=== PATIENT | female | born 1955 | race Two or more races ===

== ENCOUNTER 2017-03-27 13:07 | Emergency (ER) | payer MEDICAID ==
[~2017-03-27] VITALS: Ht 154.9 cm; Wt 58.5 kg
[2017-03-27 13:07] VITALS: BP 121/78
[~2017-03-27 13:07] MED LIST: HYDROmorphone 1mg/ml Carpuject IVP ONE
--- NOTE | 2017-03-27 13:14 | Emergency Room Report ---
History of Present Illness General Chief Complaint: Multiple Trauma/Fall Source: Family Member, EMS, Caregiver (ERIC ADKINS) Present Illness HPI The patient is a 61 yo F presenting for pain after ground level fall this morning. PMHx of renal failure on dialysis M, W, F, liver transplant 2005, hepatic encephalopathy. Pain is a 10/10 sharp sensation to R hip and does not radiate. Worse with movement. The patient is not provide information at this time.The caregiver states that the patient is at baseline mentation. She is unsure if the patient hit her head. The patient is on Coumadin. (ERIC ADKINS P.A.) Allergies: Coded Allergies: ACETAMINOPHEN (Verified Allergy, Unknown, 03/27/17) IBUPROFEN (Verified Allergy, Unknown, 03/27/17) PENICILLINS (Verified Allergy, Unknown, 03/27/17) Patient History Past Medical History: see triage record, DM, renal disease, dialysis, other - liver transplant Last Menstrual Period: N/A Reviewed Nursing Documentation: PMH: Agreed, PSxH: Agreed (ERIC ADKINS P.A.) Nursing Documentation-PMH Past Medical History: No History, Except For Hx Cardiac Problems: No - RENAL FAILURE, LIVER TRANSPLANT RECEIPIENT 2005, BACK ON LIST NOW Hx Hypertension: No - HEPATIC ENCEPHALOPATHY, ASCITIS Hx Dialysis: Yes - M-W-F (ERIC ADKINS P.A.) Review of Systems All Other Systems: limited (ERIC ADKINS P.A.) Physical Exam Vital Signs Date Time Temp Pulse Resp B/P (MAP) Pulse Ox O2 Delivery O2 Flow Rate FiO2 03/27/17 12:53 104 20 109/68 98 Room Air (ERIC ADKINS P.A.) Sp02 EP Interpretation: reviewed, normal General Appearance: mild distress, lethargic Head: normocephalic Eyes: bilateral eye normal inspection, bilateral eye PERRL ENT: normal ENT inspection Neck: full range of motion Respiratory: chest non-tender, lungs clear, normal breath sounds, speaking full sentences Cardiovascular #1: regular rate, rhythm, no edema Gastrointestinal: normal bowel sounds, non tender, soft, non-distended, no guarding, no rebound Rectal: deferred Genitourinary: no CVA tenderness Musculoskeletal: other - shortening L hip Neurologic: other - lethargic Psychiatric: other - cnofused Skin: normal inspection Lymphatic: normal inspection (RITESH CONDON M.D.) Procedures Critical Care Time Critical Care Time i. I feel this is a highly complex case requiring extensive working including EKG/Rhythm strip, Xray/CT/US, Blood/urine lab work, repeat exams while in ED, and administration of strong opiates/narcotics for pain control, admission to hospital or close patient follow up. Total time: 30 min bedside evaluation and treatment excludes procedures (EKG). Reason for critical care: Altered mental status, hip fracture, subarachnoid Possible complications: hypotension, hypertension, [place], shock, arrhythmias, metabolic acidosis, end organ damage, respiratory failure. Interventions: labs, CT head, CT Lspine, CT Pelvis, intubation, CXR. IV Keppra. Vitamin K. consultation with neurosurgery Course: Patient presented with ground level fall, hitting head with left hip shortening. CT brain shows subarachnoid hemorrhage. CT pelvis shows bilateral hip fracture. ammonia significant elevated. BUN/creatinine elevated. Patient intubated. Given Keppra. Given vitamin K. Discussed course with trauma team at [facility] and accept the patient Consultations: nursing staff, EMS, family Performed by: Dr Condon Tolerated well condition = critical j. because of unstable vital signs this patient had a condition that could potentially threaten life or limb. I feel this is a critical patient who required my full attention while patient was considered critical. Total Critical Care Time excluding procedures was greater than 35 minutes (RITSEH CONDON M.D.) Medical Decision Making PA Attestation Dr. Condon is my supervising physician. Patient management was discussed with my supervising physician (ERIC ADKINS) Diagnostic Impression: Primary Impression: Subarachnoid hemorrhage Additional Impressions: Hepatic encephalopathy Liver failure Qualified Codes: K72.01 - Acute and subacute hepatic failure with coma ESRD (end stage renal disease) on dialysis Intertrochanteric fracture of right hip Qualified Codes: S72.144A - Nondisplaced intertrochanteric fracture of right femur, initial encounter for closed fracture Fracture of greater trochanter of left femur Qualified Codes: S72.115A - Nondisplaced fracture of greater trochanter of left femur, initial encounter for closed fracture ER Course Hospital Course 61-year-old female presents ED with right hip shortening status post fall. Head injury. on couamdin. h/o liver transplant. h/o ESRD Differential diagnosis includes- hip fx, brain bleed, coagulopathy Clinical course Patient placed on stretcher. Initial history and physical I ordered labs, pain meds, CT Labs show significant LFT elevation, ammonia level elevated, INR 3.0 CT brain shows subarachnoid hemorrhage CT Pelvis shows R intertrochanteric fx, L greater trochanter fx Given loading dose of Keppra. Given lactulose. Given vitamin K Given multiple comorbidities patient will be intubated. While majority of care is at [facility] there is no bed availability. Patient will be transferred at [facility] for higher level of care. Case endorsed to neurosurgeon i. I feel this is a highly complex case requiring extensive working including EKG/Rhythm strip, Xray/CT/US, Blood/urine lab work, repeat exams while in ED, and administration of strong opiates/narcotics for pain control, admission to hospital or close patient follow up. Diagnosis -subarachnoid hemorrhage, hepatic encephaloapthy, liver failure, ESRD on diaylsis, intertrochanteric fx. frature of greater trochanter transferred in critical condition transferred in critical condition Labs Test 03/27/17 12:35 03/27/17 13:15 White Blood Count 4.0 K/UL (4.8-10.8) Red Blood Count 3.01 M/UL (4.20-5.40) Hemoglobin 9.7 G/DL (12.0-16.0) Hematocrit 29.9 % (37.0-47.0) Mean Corpuscular Volume 99 FL (80-99) Mean Corpuscular Hemoglobin 32.2 PG (27.0-31.0) Mean Corpuscular Hemoglobin Concent 32.4 G/DL (32.0-36.0) Red Cell Distribution Width 16.2 % (11.6-14.8) Platelet Count 42 K/UL (150-450) Mean Platelet Volume 10.3 FL (6.5-10.1) Neutrophils (%) (Auto) % (45.0-75.0) Lymphocytes (%) (Auto) % (20.0-45.0) Monocytes (%) (Auto) % (1.0-10.0) Eosinophils (%) (Auto) % (0.0-3.0) Basophils (%) (Auto) % (0.0-2.0) Differential Total Cells Counted 100 Neutrophils % (Manual) 76 % (45-75) Lymphocytes % (Manual) 15 % (20-45) Monocytes % (Manual) 7 % (1-10) Eosinophils % (Manual) 1 % (0-3) Basophils % (Manual) 0 % (0-2) Band Neutrophils 1 % (0-8) Platelet Estimate Decreased Platelet Morphology Normal Hypochromasia 1+ Anisocytosis 1+ Spherocytes 1+ Prothrombin Time 32.3 SEC (9.30-11.50) Prothromb Time International Ratio 3.0 (0.9-1.1) Activated Partial Thromboplast Time 40 SEC (23-33) Sodium Level 141 MMOL/L (136-145) Potassium Level 3.9 MMOL/L (3.5-5.1) Chloride Level 106 MMOL/L (98-107) Carbon Dioxide Level 24 MMOL/L (21-32) Anion Gap 11 mmol/L (5-15) Blood Urea Nitrogen 22 mg/dL (7-18) Creatinine 3.5 MG/DL (0.55-1.30) Estimat Glomerular Filtration Rate 13.4 mL/min (>60) Glucose Level 142 MG/DL (74-106) Calcium Level 8.2 MG/DL (8.5-10.1) Total Bilirubin 2.0 MG/DL (0.2-1.0) Direct Bilirubin 0.9 MG/DL (0.0-0.3) Aspartate Amino Transf (AST/SGOT) 66 U/L (15-37) Alanine Aminotransferase (ALT/SGPT) 44 U/L (12-78) Alkaline Phosphatase 283 U/L (46-116) Total Protein 7.3 G/DL (6.4-8.2) Albumin 2.5 G/DL (3.4-5.0) Globulin 4.8 g/dL Albumin/Globulin Ratio 0.5 (1.0-2.7) Ammonia 143 umol/L (11-32) (RITESH CONDON M.D.) Chest X-Ray Diagnostic Results Chest X-Ray Diagnostic Results : Chest X-Ray Ordered: Yes # of Views/Limited/Complete: 1 View Indication: Other - intubated EP Interpretation: Yes Interpretation: no consolidation, no effusion, no pneumothorax, no acute cardiopulmonary disease, other - intubated Impression: Other - intubated Electronically Signed by: Electronically signed by Ritesh Condon MD (RITESH CONDON M.D.) CT/MRI/US Diagnostic Results CT/MRI/US Diagnostic Results #1: Imaging Test Ordered: CT Head Impression subarachnoid hemorrhage. no midline shift or mass effect CT/MRI/US Diagnostic Results #2: Imaging Test Ordered: CT L spine Impression no acute fx identified CT/MRI/US Diagnostic Results #3: Imaging Test Ordered: CT Pelvis Impression R intertrochanter hip fx L greater trochanter fx (RITESH CONDON M.D.) Last Vital Signs Date Time Temp Pulse Resp B/P (MAP) Pulse Ox O2 Delivery O2 Flow Rate FiO2 03/27/17 12:53 104 20 109/68 98 Room Air (ERIC ADKINS) Status: unchanged (RITESH CONDON M.D.) [facility] Condition: Critical ERIC ADKINS Mar 27, 2017 13:14 RITESH CONDON M.D. Mar 27, 2017 15:50
[2017-03-27] MEDS ORDERED: WARFARIN SODIUM1 MG ORAL (13:21)
[2017-03-27] MEDS ORDERED: XIFAXAN550 MG ORAL (13:21)
[2017-03-27] MEDS ORDERED: TACROLIMUS0.5 MG PO (13:21)
[2017-03-27] MEDS ORDERED: MIDODRINE HCL5 MG ORAL (13:21)
[2017-03-27] MEDS ORDERED: THIAMINE HCL100 MG ORAL (13:21)
[2017-03-27] MEDS ORDERED: NEPHROVITE1 TAB ORAL (13:21)
[2017-03-27] MEDS ORDERED: NEXIUM40 MG ORAL (13:21)
[2017-03-27] MEDS ORDERED: CALCIUM 250+D1 EACH PO (13:21)
[2017-03-27] MEDS ORDERED: GABAPENTIN300 MG ORAL (13:21)
[2017-03-27 13:40] LABS: MEAN CORPUSCULAR HEMOGLOBIN 32.2 PG (27.0-31.0); MEAN CORPUSCULAR HGB CONC 32.4 G/DL (32.0-36.0); MEAN CORPUSCULAR VOLUME 99 FL (80-99); MEAN PLATELET VOLUME 10.3 FL (6.5-10.1); PLATELET COUNT 42 K/UL (150-450); RED BLOOD COUNT 3.01 M/UL (4.20-5.40); RED CELL DISTRIBUTION WIDTH 16.2 % (11.6-14.8)
[2017-03-27 13:55] LABS: ALANINE AMINOTRANSFERASE 44 U/L (12-78); ALBUMIN/GLOBULIN RATIO 0.5 (1.0-2.7); ANION GAP 11 mmol/L (5-15); ASPARTATE AMINO TRANSFERASE 66 U/L (15-37); CALCIUM 8.2 MG/DL (8.5-10.1); CARBON DIOXIDE 24 MMOL/L (21-32); CHLORIDE 106 MMOL/L (98-107); CREATININE 3.5 MG/DL (0.55-1.30); GLOMERULAR FILTRATION RATE 13.4 mL/min (>60); POTASSIUM 3.9 MMOL/L (3.5-5.1); PROTHROMBIN TIME 32.3 SEC (9.30-11.50); SODIUM 141 MMOL/L (136-145); TOTAL PROTEIN 7.3 G/DL (6.4-8.2)
[2017-03-27 13:58] LABS: BILIRUBIN,DIRECT 0.9 MG/DL (0.0-0.3)
[2017-03-27 14:00] VITALS: BP 113/61
[2017-03-27 14:07] LABS: ANISOCYTOSIS 1+; BAND NEUTROPHILS % (MANUAL) 1 % (0-8); BASOPHILS % (MANUAL) 0 % (0-2); EOSINOPHILS % (MANUAL) 1 % (0-3); HYPOCHROMASIA 1+; LYMPHOCYTES % (MANUAL) 15 % (20-45); NEUTROPHILS % (MANUAL) 76 % (45-75); PLATELET ESTIMATE DECREASED; PLATELET MORPHOLOGY NORMAL; SPHEROCYTES 1+; TOTAL CELLS COUNTED 100
[2017-03-27] MEDS ORDERED: Lactulose 20gm/30ml UDC ORAL ONE (14:30)
[2017-03-27] MEDS ORDERED: levETIRAcetam 1,000mg/NS100ml 100 ML IVPB ONE (14:45)
[2017-03-27] MEDS ORDERED: Tubing IV Cassette IV ONE (14:47)
--- NOTE | 2017-03-27 15:04 | Diagnostic Imaging Report ---
Indications: 61-year-old female presenting for pain after ground level fall this morning Technique: Spiral acquisitions obtained through the brain. Angled axial and coronal 5 x 5 mm slices were reconstructed. Total dose length product 1326 mGycm. CTDI vol(s) 70 mGy. Dose reduction achieved using automated exposure control Comparison: None Findings: Bilateral bilateral high anterior parietal sulci contain a small amount of subarachnoid blood, more on the left than on the right. Subarachnoid blood is also seen within the right sylvian fissure anteriorly. No intraparenchymal or subdural bleed demonstrated. There is no mass effect or midline shift. Matthew-white differentiation is normal. Normal size ventricles and extra axial CSF spaces. No acute edema. The calvarium is intact. Right mastoids are much less pneumatized than the left; air cells that are there are are to some extent opacified. The included sinuses are clear. The orbits are unremarkable. Impression: Right sylvian fissure, bilateral high anterior parietal sulcal focal subarachnoid hemorrhages. Given clinical history and the the distribution of the blood, this is most likely posttraumatic in nature. Possibility of aneurysmal rupture as etiology of this not completely excludable but much less likely. Negative for mass effect. Negative for intraparenchymal or subdural hemorrhage Minimal right mastoid disease The CT scanner at [facility] is accredited by the [employer] and the scans are performed using protocols designed to limit radiation exposure to as low as reasonably achievable to attain images of sufficient resolution adequate for diagnostic evaluation.
--- NOTE | 2017-03-27 15:10 | Diagnostic Imaging Report ---
Indication: Pain after ground-level fall this morning. History of renal failure on dialysis, 10 out of 10 pain to right hip Technique: Noncontrast spiral acquisitions obtained through the pelvis. Multiplanar reconstructions generated. Total dose length product 3 or 4 mGycm. CTDIvol(s) 11 mGy. Dose reduction achieved using automated exposure control Comparison: None Findings: There is an intertrochanteric fracture of the right hip. This is minimally displaced. This is slightly posteriorly angulated. There is also a fracture of the left greater trochanter, which is displaced medially. There are some small gas medial to the base of the greater trochanter. No through and through fracture demonstrated on the left. No evidence of pelvic fracture. The sacrum is intact. No definite overlying hematoma. There is diffuse edema of the subcutaneous fat as well as the intrapelvic fat. There is ascites fluid. A large soft tissue calcification is seen in the left pelvis. Impression: Positive for right hip intertrochanteric fracture. Positive for greater trochanter fracture of the left hip. Gas bubbles at the medial base of the greater trochanter probably represent vacuum phenomenon related to the fracture, but possibility of infection with gas-forming organism should also be considered. Diffuse soft tissue edema, consistent with anasarca Ascites Findings discussed by phone with Dr. Byers in emergency room at the time of interpretation The CT scanner at [facility] is accredited by the [employer] and the scans are performed using protocols designed to limit radiation exposure to as low as reasonably achievable to attain images of sufficient resolution adequate for diagnostic evaluation.
[2017-03-27 15:15] VITALS: BP 131/68
--- NOTE | 2017-03-27 15:20 | Diagnostic Imaging Report ---
Indications: Pain after ground-level fall this morning Technique: Spiral acquisitions obtained through the lumbar spine. Multiplanar reconstructions were generated. No IV contrast utilized. Total dose length product 513 mGycm. CTDIvol(s) 19 mGy. Dose reduction achieved using automated exposure control Comparison: None Findings: There is a very slight anterior wedge deformity of the L1 vertebral body and slight endplate depression. There is a large intravertebral disc herniation in the superior endplate. There is superior endplate compression of the L3 vertebral body, without anterior height loss. There is also a large anterior superior endplate intravertebral disc herniation. There is anterior superior endplate compression deformity of the L4 vertebral body, with very slight loss of height anteriorly. The posterior mcdaniels of all of the above are intact without evidence of significant retropulsion The remaining vertebral body heights are preserved. The bony alignment is normal. No other evidence of fracture or or dislocation. Band of sclerosis is seen in the right posterior sacral wing, with very questionable subtle similar abnormality on the left side. The L1 vertebral body demonstrates an accessory right rib. At L3-4, there is mild circumferential annular bulge. This does not result in any significant spinal canal stenosis. The neural foramina are preserved. At L4-5, circumferential annular bulge results in borderline narrowing of the spinal canal. The neural foramina are preserved. L5-S1, there is broad-based posterior disc protrusion and osteophyte formation. This results in mild narrowing of the spinal canal. There is mild compromise of the bilateral neural foramina, due to the disc bulge/osteophyte complex as well as facet hypertrophy. There is bilateral lower lumbar facet degeneration, particularly on the right Surrounding soft tissues demonstrate mild edema of the subcutaneous abdominal fat. Impression: Acuity indeterminate endplate compression fracture deformities of the L1, L3, and L4 vertebral bodies, with slight anterior height loss of the L1 and L4 vertebral bodies. No evidence of significant retropulsion. Consider MRI for better characterization of the acuity of these Slight sclerotic change of the right and questionably left sacral wing. Could represent sacral insufficiency fractures, acuity likewise indeterminate if real. Consider MRI for further evaluation of this as well Degenerative changes, as detailed on a level by level basis above Incidental finding of accessory right L1 rib Diffuse soft tissue edema The CT scanner at [facility] is accredited by the [employer] and the scans are performed using protocols designed to limit radiation exposure to as low as reasonably achievable to attain images of sufficient resolution adequate for diagnostic evaluation.
[2017-03-27 15:40] VITALS: BP 131/68
--- NOTE | 2017-03-27 17:05 | Diagnostic Imaging Report ---
Indication: Post intubation Technique: One view of the chest Comparison: none Findings: There is an endotracheal tube in place, tip projects at level of the left mainstem bronchus orifice. The lungs and pleural spaces are clear except for minimal basilar atelectatic changes. There is a right chest tunneled dialysis catheter. Normal heart size. The spleen appears to be enlarged. Surgical clips are seen in the right upper quadrant and left upper quadrant. Impression: Malposition of endotracheal tube, tip in the right mainstem bronchus orifice. This critical value was phoned to Dr. Byers at the time of interpretation No definite acute cardiopulmonary process Possible splenomegaly Other findings as noted, including tunneled dialysis catheter, upper abdominal surgical clips
== END 2017-03-27 15:45 | disposition short-term general hospital (02) ==
LOC: EDBD 13:07 → EMR 13:34
DX: S06.6X0A Traumatic subarachnoid hemorrhage without loss of consciousness, initial encounter (principal); S72.141A Displaced intertrochanteric fracture of right femur, initial encounter for closed fracture; W19.XXXA Unspecified fall, initial encounter; Y92.012 Bathroom of single-family (private) house as the place of occurrence of the external cause; K72.90 Hepatic failure, unspecified without coma; N18.6 End stage renal disease; Z99.2 Dependence on renal dialysis; R51 Headache; Z88.6 Allergy status to analgesic agent; Z88.0 Allergy status to penicillin
CPT/HCPCS: 31500; 36415; 70450; 71010; 72131; 72192; 80053; 82140; 82248; 85007; 85025; 85610; 85730; 86850; 86900; 86901; 94002; 96365; 96375; 99291; J1170; J1953; J2405; J3430